=== PATIENT | female | born 1995 | race Caucasian/White ===

== ENCOUNTER 2017-12-19 22:53 | Outpatient (CLI) | payer OTHER ==
[2017-12-20 02:07] LABS: ADD UMIC YES; UR ASCORBIC ACID NEGATIVE (NEGATIVE); UR BACTERIA FEW /HPF (NONE SEEN); UR BILIRUBIN (Dip) NEGATIVE (NEGATIVE); UR BLOOD (Dip) NEGATIVE (NEGATIVE); UR CLARITY CLOUDY (CLEAR); UR COLOR YELLOW (YELLOW); UR GLUCOSE (Dip) NEGATIVE (NEGATIVE); UR KETONES (Dip) NEGATIVE (NEGATIVE); UR LEUKOCYTE ESTERASE (Dip) TRACE Leu/ul (NEGATIVE); UR NITRITE (Dip) NEGATIVE (NEGATIVE); UR RBC 3 /HPF (0-5); UR SPECIFIC GRAVITY (Dip) 1.012 (1.003-1.030); UR SQUAMOUS EPITHELIAL CELL MODERATE /HPF (FEW); UR TOTAL PROTEIN (Dip) NEGATIVE (NEGATIVE); UR UROBILINOGEN (Dip) NEGATIVE (NEGATIVE); UR WBC 4 /HPF (0-5)
== END 2017-12-20 03:01 | disposition home or self-care (01) ==
LOC: OBT 12-20 03:01 → L-D 22:54
DX: O62.9 Abnormality of forces of labor, unspecified (principal); O47.1 False labor at or after 37 completed weeks of gestation; Z3A.38 38 weeks gestation of pregnancy
CPT/HCPCS: 76818; 81001; 87086

== ENCOUNTER 2017-12-25 12:21 | Inpatient (IN) | payer OTHER ==
[2017-12-25 13:59] LABS: RUPTURE FETAL MEMBRANES POSITIVE (NEGATIVE)
[2017-12-25] MEDS: LACTATED RINGER'S 1,000 ML IV (15:38)
[2017-12-25] MEDS: AMPICILLIN 2 GM/NS (PMX) 100 ML IV (15:43)
[2017-12-25 15:52] LABS: ADD MAN DIFF? NO
[2017-12-25 15:55] LABS: WHITE BLOOD COUNT 9.2 10^3/ul (4.8-10.8)
[2017-12-25 15:55] LABS: BASOPHILS % 0.2 % (0.0-2.0); EOSINOPHILS % 0.4 % (0.0-7.0); HEMATOCRIT 34.8 % (37.0-47.0); HEMOGLOBIN 11.3 g/dl (12.0-16.0); LYMPHOCYTES # 1.6 10^3/ul (0.8-2.9); LYMPHOCYTES % 17.2 % (15.0-51.0); MEAN CORPUSCULAR HEMOGLOBIN 29.7 pg (29.0-33.0); MEAN CORPUSCULAR HGB CONC 32.5 g/dl (32.0-37.0); MEAN CORPUSCULAR VOLUME 91.3 fl (82.0-101.0); MEAN PLATELET VOLUME 10.8 fl (7.4-10.4); MONOCYTE # 0.4 10^3/ul (0.3-0.9); MONOCYTES % 4.8 % (0.0-11.0); NEUTROPHIL # 7.1 10^3/ul (1.6-7.5); NEUTROPHILS % 77.2 % (39.0-77.0); PLATELET COUNT 247 10^3/UL (140-415); RED BLOOD COUNT 3.81 10^6/ul (4.20-5.40); RED CELL DISTRIBUTION WIDTH 12.8 % (11.5-14.5)
[2017-12-25] MEDS ORDERED: OXYTOCIN 30 UNITS/LR 500 ML IV (16:00)
[2017-12-25] MEDS ORDERED: MISOPROSTOL 200 MCG TAB PR (16:00)
[2017-12-25] MEDS ORDERED: IBUPROFEN 600 MG TAB PO (16:00)
[2017-12-25] MEDS ORDERED: LIDOCAINE 1% (MPF) 30 ML INJ INJ (16:00)
[2017-12-25] MEDS ORDERED: CARBOPROST 250 MCG INJ IM (16:00)
[2017-12-25] MEDS ORDERED: METHYLERGONOVINE 0.2 MG INJ IM (16:00)
[2017-12-25 16:22] LABS: INR 0.85; PROTIME 11.7 Sec (11.9-14.9); PT RATIO 0.9
[2017-12-25 16:23] LABS: PARTIAL THROMBOPLASTIN TIME 26.2 Sec (25.0-35.0)
[2017-12-25 16:44] LABS: HEPATITIS B SURFACE ANTIGEN NEGATIVE (NEGATIVE)
[2017-12-25 19:22] LABS: ADD UMIC YES; UR ASCORBIC ACID NEGATIVE (NEGATIVE); UR BACTERIA FEW /HPF (NONE SEEN); UR BILIRUBIN (Dip) NEGATIVE (NEGATIVE); UR BLOOD (Dip) 3+ mg/dL (NEGATIVE); UR CLARITY SLIGHTLY CLOUDY (CLEAR); UR COLOR YELLOW (YELLOW); UR GLUCOSE (Dip) NEGATIVE (NEGATIVE); UR KETONES (Dip) NEGATIVE (NEGATIVE); UR LEUKOCYTE ESTERASE (Dip) NEGATIVE Leu/ul (NEGATIVE); UR NITRITE (Dip) NEGATIVE (NEGATIVE); UR RBC 8 /HPF (0-5); UR SPECIFIC GRAVITY (Dip) 1.004 (1.003-1.030); UR SQUAMOUS EPITHELIAL CELL MODERATE /HPF (FEW); UR TOTAL PROTEIN (Dip) NEGATIVE (NEGATIVE); UR UROBILINOGEN (Dip) NEGATIVE (NEGATIVE); UR WBC 5 /HPF (0-5)
[2017-12-25] MEDS: AMPICILLIN 1 GM/NS (PMX) 50 ML IV (20:14)
[2017-12-25] MEDS: MISOPROSTOL 25 MCG CAPSULE PO (20:14)
[2017-12-25] MEDS ORDERED: BUTORPHANOL 2 MG INJ (22:12)
[2017-12-25] MEDS: BUTORPHANOL 2 MG INJ IV (22:15)
[2017-12-26] MEDS ORDERED: MISOPROSTOL 25 MCG CAPSULE PO
[2017-12-26] MEDS: AMPICILLIN 1 GM/NS (PMX) 50 ML IVPB ×2 (00:29→03:54)
[2017-12-26] MEDS: LACTATED RINGER'S 1,000 ML IV ×2 (00:30→03:35)
[2017-12-26] MEDS: BUTORPHANOL 2 MG INJ IV (00:32)
[2017-12-26] MEDS: MISOPROSTOL 25 MCG CAPSULE PO (02:00)
[2017-12-26] MEDS ORDERED: FENTAnyl 2MCG/ML-ROPIV 0.2% 100 ML (02:02)
[2017-12-26] MEDS ORDERED: NALOXONE (0.4 MG/ML) INJ IV (02:30)
[2017-12-26] MEDS ORDERED: FENTAnyl 2MCG/ML-ROPIV 0.2% 100 ML BAG EPI (02:30)
[2017-12-26] MEDS: OXYTOCIN 30 UNITS/LR 500 ML IV ×3 (07:37→12:07)
[2017-12-26] MEDS ORDERED: MISOPROSTOL 200 MCG TAB PR (09:30)
[2017-12-26] MEDS ORDERED: METHYLERGONOVINE 0.2 MG INJ IM (09:30)
[2017-12-26] MEDS ORDERED: OXYCODONE/ASPIRIN (4.88/325) TAB PO ×2 (09:30)
[2017-12-26] MEDS ORDERED: ZOLPIDEM 5 MG TAB PO (09:30)
[2017-12-26] MEDS ORDERED: CARBOPROST 250 MCG INJ IM (09:30)
[2017-12-26] MEDS: MINERAL OIL LIGHT 10 ML VIAL TOP (09:52)
[2017-12-26] MEDS: WITCH HAZEL/GLYCERIN PAD PR (12:08)
[2017-12-26] MEDS: BENZOCAINE 20% 56 ML SPRAY TOP (12:08)
[2017-12-26] MEDS: LANOLIN 7 GM TUBE TOP (12:08)
[2017-12-26] MEDS: IBUPROFEN 600 MG TAB PO ×2 (12:09→18:00)
[2017-12-26 15:58] LABS: RAPID PLASMA REAGIN NONREACTIVE (NR)
[2017-12-26] MEDS: CEPHALEXIN 500 MG CAP PO (17:59)
[2017-12-26] MEDS: SENNA/DOCUSATE NA (8.6MG/50MG) TAB PO (21:24)
[2017-12-27] MEDS: CEPHALEXIN 500 MG CAP PO ×4 (00:19→18:27)
[2017-12-27] MEDS: IBUPROFEN 600 MG TAB PO ×4 (00:19→17:59)
[2017-12-27 08:59] LABS: ADD MAN DIFF? NO
[2017-12-27 09:03] LABS: BASOPHILS % 0.2 % (0.0-2.0); EOSINOPHILS # 0.1 10^3/ul (0.0-0.5); EOSINOPHILS % 0.9 % (0.0-7.0); HEMATOCRIT 31.2 % (37.0-47.0); HEMOGLOBIN 10.1 g/dl (12.0-16.0); LYMPHOCYTES # 2.1 10^3/ul (0.8-2.9); MEAN CORPUSCULAR HEMOGLOBIN 30.1 pg (29.0-33.0); MEAN CORPUSCULAR HGB CONC 32.4 g/dl (32.0-37.0); MEAN CORPUSCULAR VOLUME 92.9 fl (82.0-101.0); MEAN PLATELET VOLUME 10.9 fl (7.4-10.4); MONOCYTE # 0.7 10^3/ul (0.3-0.9); MONOCYTES % 6.4 % (0.0-11.0); NEUTROPHIL # 7.6 10^3/ul (1.6-7.5); PLATELET COUNT 216 10^3/UL (140-415); RED BLOOD COUNT 3.36 10^6/ul (4.20-5.40); RED CELL DISTRIBUTION WIDTH 13.2 % (11.5-14.5)
[2017-12-27 09:03] LABS: WHITE BLOOD COUNT 10.5 10^3/ul (4.8-10.8)
[2017-12-27] MEDS: SENNA/DOCUSATE NA (8.6MG/50MG) TAB PO ×2 (12:09→22:17)
[2017-12-27] MEDS: LANOLIN 7 GM TUBE TOP (22:17)
[2017-12-28] MEDS: CEPHALEXIN 500 MG CAP PO ×3 (00:34→12:10)
[2017-12-28] MEDS: IBUPROFEN 600 MG TAB PO ×3 (00:34→12:10)
[2017-12-28] MEDS: DIPHTH/TET/ACEL PERTUSS (ADULT) 0.5 ML VIAL IM* (09:00)
[2017-12-28] MEDS: SENNA/DOCUSATE NA (8.6MG/50MG) TAB PO (10:14)
[2017-12-28] MEDS: WITCH HAZEL/GLYCERIN PAD PR (13:47)
[2017-12-28] MEDS: BENZOCAINE 20% 56 ML SPRAY TOP (13:47)
== END 2017-12-28 14:43 | disposition home or self-care (01) | DRG 775 ==
LOC: OBT 12:21 → PP1 12-26 09:29 → L-D 12:21 → OBT 14:05 → L-D 14:05
PROVIDERS: Obstetrics & Gynecology
PROC: 10E0XZZ Delivery of Products of Conception, External Approach (ICD-10-PCS; principal; 2017-12-26)
PROC: 0HQ9XZZ Repair Perineum Skin, External Approach (ICD-10-PCS; 2017-12-26)
DX: O69.1XX0 Labor and delivery complicated by cord around neck, with compression, not applicable or unspecified (principal); O70.9 Perineal laceration during delivery, unspecified; O99.824 Streptococcus B carrier state complicating childbirth; Z3A.39 39 weeks gestation of pregnancy; Z37.0 Single live birth
CPT/HCPCS: 62319; 76815; 76818; 81001; 84112; 85025; 85610; 85730; 86592; 86850; 86900; 86901; 87340